=== PATIENT | male | born 1975 | race Caucasian/White ===

== ENCOUNTER 2023-03-17 11:00 | Day surgery (SDC) | payer BC ==
[2023-03-13 11:02] VITALS: BMI 36.8
[2023-03-17 11:14] VITALS: RESP 18
[2023-03-17 13:13] VITALS: TEMP 97.2
[2023-03-17 13:28] VITALS: BP 110/74; PULSE 99
== END 2023-03-17 13:49 | disposition home or self-care (01) ==
LOC: FASU-ENDO 11:00
PROVIDERS: ATTEND Internal Medicine Gastroenterology
PROC: 0DBL8ZX Excision of Transverse Colon, Via Natural or Artificial Opening Endoscopic, Diagnostic (ICD-10-PCS; 2023-03-17)
PROC: 0DBN8ZX Excision of Sigmoid Colon, Via Natural or Artificial Opening Endoscopic, Diagnostic (ICD-10-PCS; 2023-03-17)
PROC: 0DBP8ZX Excision of Rectum, Via Natural or Artificial Opening Endoscopic, Diagnostic (ICD-10-PCS; principal; 2023-03-17 12:43)
DX: Z12.11 Encounter for screening for malignant neoplasm of colon (principal); D12.3 Benign neoplasm of transverse colon; D12.8 Benign neoplasm of rectum
CPT/HCPCS: 88305-TC